=== PATIENT | male | born 1960 | race Two or more races ===

== ENCOUNTER 2022-06-07 11:20 | Inpatient (IN) | payer MEDICARE, MEDICAID ==
[~2022-06-07] VITALS: Ht 165.1 cm; Wt 78.1 kg
[~2022-06-07 11:20] MED LIST: OLAN7.5T22 PO
[2022-06-07] MEDS ORDERED: PALI234D IM (11:34)
[2022-06-07] MEDS ORDERED: OLAN2.5T29 PO (11:34)
[2022-06-07] MEDS ORDERED: BUSP15 PO (11:34)
[2022-06-07] MEDS ORDERED: ATOR40TA71 PO (11:34)
[2022-06-07] MEDS ORDERED: DIVA-85 PO (11:34)
[2022-06-07] MEDS ORDERED: DIVA-80 PO (11:34)
[2022-06-07] MEDS ORDERED: FERR325T27 PO (11:34)
[2022-06-07] MEDS ORDERED: OLAN10TA74 PO (11:34)
[2022-06-07] MEDS ORDERED: LOSA-382 PO (11:34)
[2022-06-07] MEDS ORDERED: LEVO100 PO (11:34)
[2022-06-07] MEDS ORDERED: ICOS1CAP PO (11:34)
[2022-06-07] MEDS ORDERED: QUET100T PO (11:37)
[2022-06-07] MEDS ORDERED: MELA5TAB21 PO (11:37)
[2022-06-07 12:26] LABS: BASOPHILS % (AUTO) 0.2 % (0.0-2.0); EOSINOPHILS % (AUTO) 0.6 % (1.0-6.0); HEMATOCRIT 38.6 % (41-53); HEMOGLOBIN 12.8 g/dL (13.5-17.5); LYMPHOCYTES # (AUTO) 1.2 K/uL (1.0-4.8); MEAN CORPUSCULAR HEMOGLOBIN 30.4 pg (26.0-34.0); MEAN CORPUSCULAR HGB CONC 33.3 G/dL (31.0-37.0); MEAN CORPUSCULAR VOLUME 91 fL (80-100); MONOCYTES # (AUTO) 0.3 K/uL (0.1-1.0); MONOCYTES % (AUTO) 9.7 % (2.0-9.0); NEUTROPHILS # (AUTO) 1.8 K/uL (1.8-7.7); NEUTROPHILS % (AUTO) 54.5 % (40.0-70.0); PLATELET COUNT (AUTO) 90 K/uL (150-450); RED BLOOD CELL COUNT(AUTO) 4.23 MIL/uL (4.50-5.90); RED CELL DISTRIBUTION WIDTH 13.8 % (11.5-14.5)
[2022-06-07 12:28] LABS: ANION GAP 8 mmol/L (8-16); CALCIUM, TOTAL 8.7 mg/dL (8.8-10.5); CARBON DIOXIDE 27 mmol/L (22-29); CHLORIDE 100 mmol/L (98-107); CREATININE 0.73 mg/dL (0.60-1.30); GLUCOSE,RANDOM 111 mg/dL (70-110); POTASSIUM 4.1 mmol/L (3.5-5.1); SODIUM SERUM 135 mmol/L (136-145); UREA NITROGEN, BLOOD 12 mg/dL (7-18)
[2022-06-07 12:31] LABS: GLOMERULAR FILTR. RATE CALC > 60 mL/min (>60)
[2022-06-07 12:34] LABS: ALANINE AMINOTRANSFERASE 12 U/L (12-78); ALBUMIN 3.3 g/dL (3.4-5.0); ALKALINE PHOSPHATASE 69 U/L (46-116); ASPARTATE AMINOTRANSFERASE 20 U/L (15-37); BILIRUBIN,TOTAL 0.5 mg/dL (0.1-1.0); TOTAL PROTEIN, SERUM 6.7 g/dL (6.4-8.2)
[2022-06-07] MEDS ORDERED: OLANZapine 5 MG RAPDIS TABLET PO PRN (13:15)
[2022-06-07] MEDS ORDERED: LORazepam 2 MG TABLET PO PRN (13:15)
[2022-06-07 13:20] LABS: COVID AG,FIA SOURCE NASAL SWAB
[2022-06-07 18:34] VITALS: BP 129/66
[2022-06-08] MEDS ORDERED: BENZOCAINE/MENTHOL LOZENGE PO PRN (07:15)
[2022-06-08] MEDS ORDERED: MAGNESIUM HYDROXIDE SUSPENSION 30 ML UDCUP PO PRN (07:15)
[2022-06-08] MEDS ORDERED: BACITRACIN 28 GM OINTMENT TP PRN (07:15)
[2022-06-08] MEDS ORDERED: OMEPRAZOLE 20 MG CAPSULE PO PRN (07:15)
[2022-06-08] MEDS ORDERED: CloNIDine HCL 0.1 MG TABLET PO PRN (07:15)
[2022-06-08] MEDS ORDERED: MAG HYDROX/AL HYDROX/SIMETH ES 30 ML SUSPENSION UDCUP PO PRN (07:15)
[2022-06-08] MEDS ORDERED: PETROLATUM,WHITE 28 GM JELLY TP PRN (07:15)
[2022-06-08] MEDS ORDERED: LOPERAMIDE HCL 2 MG CAPSULE PO PRN (07:15)
[2022-06-08] MEDS ORDERED: ALBUTEROL SULFATE HFA 90 MCG/PUFF 8 GM INHALER IH PRN (07:15)
[2022-06-08] MEDS ORDERED: ONDANSETRON HCL 4 MG TABLET PO PRN (07:15)
[2022-06-08] MEDS ORDERED: IBUPROFEN 600 MG TABLET PO PRN (07:15)
[2022-06-08] MEDS ORDERED: ACETAMINOPHEN 325 MG TABLET PO PRN (07:15)
[2022-06-08] MEDS: ATORVASTATIN CALCIUM 40 MG TABLET PO SCH (08:46)
[2022-06-08] MEDS: LOSARTAN POTASSIUM 50 MG TABLET PO SCH (08:47)
[2022-06-08] MEDS: LEVOTHYROXINE SODIUM 100 MCG TABLET PO SCH (08:47)
[2022-06-08 09:00] VITALS: BP 138/80
[2022-06-08 11:44] LABS: VALPROIC ACID 101 mcg/mL (50-100)
[2022-06-08] MEDS: OLANZapine 5 MG TABLET PO SCH (12:00)
[2022-06-08] MEDS: DIVALPROEX SODIUM 500 MG ER TABLET PO SCH ×2 (12:00→20:20)
[2022-06-08] MEDS: BusPIRone HCL 10 MG TABLET PO SCH ×2 (12:23→16:24)
[2022-06-08] MEDS: DOCUSATE SODIUM 100 MG CAPSULE PO PRN (13:45)
[2022-06-08 16:12] VITALS: BP 145/91
[2022-06-08] MEDS: ZOLPIDEM TARTRATE 10 MG TABLET PO PRN (20:20)
[2022-06-08] MEDS: OLANZapine 10 MG TABLET PO SCH (20:20)
[2022-06-09] MEDS: LEVOTHYROXINE SODIUM 100 MCG TABLET PO SCH (06:09)
[2022-06-09 07:29] LABS: AMPHET/METH SCREEN,URINE NEGATIVE (NEGATIVE); BARBITURATE SCREEN, URINE NEGATIVE (NEGATIVE); BENZODIAZEPINES SCREEN,URINE NEGATIVE (NEGATIVE); CANNABINOID SCREEN,URINE NEGATIVE (NEGATIVE); COCAINE SCREEN,URINE NEGATIVE (NEGATIVE); METHADONE SCREEN, URINE NEGATIVE (NEGATIVE); OPIATE SCREEN,URINE NEGATIVE (NEGATIVE)
[2022-06-09 07:31] LABS: APPEARANCE,URINE CLEAR (CLEAR); BILIRUBIN,URINE NEGATIVE (NEGATIVE); GLUCOSE, URINE (UA) NEGATIVE (NEGATIVE); KETONES,URINE NEGATIVE (NEGATIVE); LEUKOCYTE ESTERASE ,URINE NEGATIVE (NEGATIVE); NITRATE,URINE NEGATIVE (NEGATIVE); OCCULT BLOOD,URINE NEGATIVE (NEGATIVE); PH,URINE 6.5 (5.0-8.0); PROTEIN,URINE NEGATIVE (NEGATIVE); UROBILINOGEN,URINE <=1.0 mg/dL (<=1.0)
[2022-06-09 07:39] LABS: PHENCYCLIDINE SCREEN,URINE NEGATIVE (NEGATIVE)
[2022-06-09 09:03] VITALS: BP 132/74
[2022-06-09] MEDS: OLANZapine 5 MG TABLET PO SCH (10:37)
[2022-06-09] MEDS: DIVALPROEX SODIUM 500 MG ER TABLET PO SCH ×2 (10:37→20:23)
[2022-06-09] MEDS: LOSARTAN POTASSIUM 50 MG TABLET PO SCH (10:37)
[2022-06-09] MEDS: ATORVASTATIN CALCIUM 40 MG TABLET PO SCH (10:37)
[2022-06-09] MEDS: BusPIRone HCL 10 MG TABLET PO SCH ×3 (10:38→16:56)
[2022-06-09 16:00] VITALS: BP 137/89
[2022-06-09] MEDS ORDERED: DIVA-80 PO (16:16)
[2022-06-09] MEDS: OLANZapine 10 MG TABLET PO SCH (20:23)
[2022-06-10] MEDS: LEVOTHYROXINE SODIUM 100 MCG TABLET PO SCH (06:36)
[2022-06-10 10:05] VITALS: BP 145/86
[2022-06-10] MEDS: BusPIRone HCL 10 MG TABLET PO SCH ×3 (10:06→17:16)
[2022-06-10] MEDS: OLANZapine 5 MG TABLET PO SCH (10:06)
[2022-06-10] MEDS: LOSARTAN POTASSIUM 50 MG TABLET PO SCH (10:06)
[2022-06-10] MEDS: ATORVASTATIN CALCIUM 40 MG TABLET PO SCH (10:06)
[2022-06-10] MEDS: DIVALPROEX SODIUM 500 MG ER TABLET PO SCH ×2 (10:07→20:26)
[2022-06-10 16:12] VITALS: BP 129/86
[2022-06-10] MEDS: OLANZapine 10 MG TABLET PO SCH (20:26)
[2022-06-11] MEDS: LEVOTHYROXINE SODIUM 100 MCG TABLET PO SCH (06:06)
[2022-06-11 08:00] VITALS: BP 133/74
[2022-06-11] MEDS: BusPIRone HCL 10 MG TABLET PO SCH ×3 (08:46→16:13)
[2022-06-11] MEDS: DIVALPROEX SODIUM 500 MG ER TABLET PO SCH ×2 (08:46→20:39)
[2022-06-11] MEDS: ATORVASTATIN CALCIUM 40 MG TABLET PO SCH (08:46)
[2022-06-11] MEDS: LOSARTAN POTASSIUM 50 MG TABLET PO SCH (08:47)
[2022-06-11] MEDS: OLANZapine 5 MG TABLET PO SCH (08:47)
[2022-06-11] MEDS ORDERED: PALIPERIDONE PALMITATE 234 MG/1.5 ML SYRINGE IM SCH (09:00)
[2022-06-11 16:00] VITALS: BP 117/77
[2022-06-11 20:20] VITALS: BP 125/82
[2022-06-11] MEDS: OLANZapine 10 MG TABLET PO SCH (20:40)
[2022-06-12] MEDS: LEVOTHYROXINE SODIUM 100 MCG TABLET PO SCH (06:50)
[2022-06-12] MEDS: BusPIRone HCL 10 MG TABLET PO SCH ×3 (09:04→16:18)
[2022-06-12] MEDS: OLANZapine 5 MG TABLET PO SCH (09:04)
[2022-06-12] MEDS: LOSARTAN POTASSIUM 50 MG TABLET PO SCH (09:05)
[2022-06-12] MEDS: ATORVASTATIN CALCIUM 40 MG TABLET PO SCH (09:05)
[2022-06-12] MEDS: DIVALPROEX SODIUM 500 MG ER TABLET PO SCH ×2 (09:06→20:30)
[2022-06-12] MEDS ORDERED: PALIPERIDONE PALMITATE 234 MG/1.5 ML SYRINGE IM SCH (10:45)
[2022-06-12 16:16] VITALS: BP 105/66
[2022-06-12] MEDS: DOCUSATE SODIUM 100 MG CAPSULE PO PRN (18:19)
[2022-06-12] MEDS: ZOLPIDEM TARTRATE 10 MG TABLET PO PRN (20:31)
[2022-06-12] MEDS: OLANZapine 10 MG TABLET PO SCH (20:31)
[2022-06-13] MEDS: LEVOTHYROXINE SODIUM 100 MCG TABLET PO SCH (06:06)
[2022-06-13 07:39] LABS: COVID AG,FIA SOURCE NASAL SWAB
[2022-06-13] MEDS: BusPIRone HCL 10 MG TABLET PO SCH ×3 (08:33→16:18)
[2022-06-13] MEDS: ATORVASTATIN CALCIUM 40 MG TABLET PO SCH (08:33)
[2022-06-13] MEDS: LOSARTAN POTASSIUM 50 MG TABLET PO SCH (08:33)
[2022-06-13] MEDS: OLANZapine 5 MG TABLET PO SCH (08:33)
[2022-06-13] MEDS: DIVALPROEX SODIUM 500 MG ER TABLET PO SCH ×2 (08:34→20:23)
[2022-06-13 09:00] VITALS: BP 118/70
[2022-06-13 16:00] VITALS: BP 141/86
[2022-06-13] MEDS: OLANZapine 10 MG TABLET PO SCH (20:23)
[2022-06-14] MEDS: LEVOTHYROXINE SODIUM 100 MCG TABLET PO SCH (06:28)
[2022-06-14 08:48] VITALS: BP 163/85
[2022-06-14] MEDS: ATORVASTATIN CALCIUM 40 MG TABLET PO SCH (09:42)
[2022-06-14] MEDS: LOSARTAN POTASSIUM 50 MG TABLET PO SCH (09:42)
[2022-06-14] MEDS: BusPIRone HCL 10 MG TABLET PO SCH ×3 (09:42→16:08)
[2022-06-14] MEDS: OLANZapine 5 MG TABLET PO SCH (09:42)
[2022-06-14] MEDS: DIVALPROEX SODIUM 500 MG ER TABLET PO SCH ×2 (09:44→20:42)
[2022-06-14 16:01] VITALS: BP 134/72
[2022-06-14] MEDS: OLANZapine 10 MG TABLET PO SCH (20:42)
[2022-06-15] MEDS: LEVOTHYROXINE SODIUM 100 MCG TABLET PO SCH (06:56)
[2022-06-15 09:03] VITALS: BP 121/73
[2022-06-15] MEDS: ATORVASTATIN CALCIUM 40 MG TABLET PO SCH (10:16)
[2022-06-15] MEDS: BusPIRone HCL 10 MG TABLET PO SCH ×3 (10:16→17:28)
[2022-06-15] MEDS: DIVALPROEX SODIUM 500 MG ER TABLET PO SCH ×2 (10:16→20:55)
[2022-06-15] MEDS: LOSARTAN POTASSIUM 50 MG TABLET PO SCH (10:16)
[2022-06-15] MEDS: OLANZapine 5 MG TABLET PO SCH (10:16)
[2022-06-15 16:24] VITALS: BP 137/81
[2022-06-15] MEDS: OLANZapine 10 MG TABLET PO SCH (20:55)
[2022-06-16] MEDS: LEVOTHYROXINE SODIUM 100 MCG TABLET PO SCH (06:21)
[2022-06-16 08:00] VITALS: BP 134/83
[2022-06-16] MEDS: OLANZapine 5 MG TABLET PO SCH (08:18)
[2022-06-16] MEDS: LOSARTAN POTASSIUM 50 MG TABLET PO SCH (08:18)
[2022-06-16] MEDS: DIVALPROEX SODIUM 500 MG ER TABLET PO SCH ×2 (08:18→20:24)
[2022-06-16] MEDS: ATORVASTATIN CALCIUM 40 MG TABLET PO SCH (08:18)
[2022-06-16] MEDS: BusPIRone HCL 10 MG TABLET PO SCH ×3 (08:19→17:33)
[2022-06-16 11:13] LABS: BASOPHILS % (AUTO) 0.3 % (0.0-2.0); EOSINOPHILS % (AUTO) 0.5 % (1.0-6.0); HEMATOCRIT 36.9 % (41-53); HEMOGLOBIN 12.2 g/dL (13.5-17.5); LYMPHOCYTES # (AUTO) 1.1 K/uL (1.0-4.8); LYMPHOCYTES % (AUTO) 21.6 % (22.0-44.0); MEAN CORPUSCULAR HEMOGLOBIN 29.9 pg (26.0-34.0); MEAN CORPUSCULAR HGB CONC 33.1 G/dL (31.0-37.0); MEAN CORPUSCULAR VOLUME 90 fL (80-100); MONOCYTES # (AUTO) 0.7 K/uL (0.1-1.0); MONOCYTES % (AUTO) 13.1 % (2.0-9.0); NEUTROPHILS # (AUTO) 3.3 K/uL (1.8-7.7); NEUTROPHILS % (AUTO) 64.5 % (40.0-70.0); PLATELET COUNT (AUTO) 156 K/uL (150-450); RED BLOOD CELL COUNT(AUTO) 4.09 MIL/uL (4.50-5.90); RED CELL DISTRIBUTION WIDTH 13.9 % (11.5-14.5)
[2022-06-16 11:46] LABS: ANION GAP 6 mmol/L (8-16); CALCIUM, TOTAL 8.5 mg/dL (8.8-10.5); CARBON DIOXIDE 31 mmol/L (22-29); CHLORIDE 100 mmol/L (98-107); CREATININE 0.63 mg/dL (0.60-1.30); GLOMERULAR FILTR. RATE CALC > 60 mL/min (>60); GLUCOSE,RANDOM 160 mg/dL (70-110); POTASSIUM 3.9 mmol/L (3.5-5.1); SODIUM SERUM 137 mmol/L (136-145); UREA NITROGEN, BLOOD 14 mg/dL (7-18)
[2022-06-16 16:21] VITALS: BP 130/74
[2022-06-16] MEDS: OLANZapine 10 MG TABLET PO SCH (20:24)
[2022-06-17] MEDS: LEVOTHYROXINE SODIUM 100 MCG TABLET PO SCH (06:19)
[2022-06-17] MEDS: DIVALPROEX SODIUM 500 MG ER TABLET PO SCH ×2 (08:50→20:26)
[2022-06-17] MEDS: BusPIRone HCL 10 MG TABLET PO SCH ×3 (08:51→16:17)
[2022-06-17] MEDS: LOSARTAN POTASSIUM 50 MG TABLET PO SCH (08:51)
[2022-06-17] MEDS: ATORVASTATIN CALCIUM 40 MG TABLET PO SCH (08:51)
[2022-06-17] MEDS: OLANZapine 5 MG TABLET PO SCH (08:52)
[2022-06-17 09:05] VITALS: BP 159/92
[2022-06-17 16:05] VITALS: BP 132/99
[2022-06-17] MEDS: OLANZapine 10 MG TABLET PO SCH (20:25)
[2022-06-18] MEDS: LEVOTHYROXINE SODIUM 100 MCG TABLET PO SCH (06:44)
[2022-06-18] MEDS: DIVALPROEX SODIUM 500 MG ER TABLET PO SCH ×2 (08:59→20:29)
[2022-06-18] MEDS: OLANZapine 5 MG TABLET PO SCH (09:00)
[2022-06-18] MEDS: ATORVASTATIN CALCIUM 40 MG TABLET PO SCH (09:00)
[2022-06-18] MEDS: BusPIRone HCL 10 MG TABLET PO SCH ×3 (09:00→17:00)
[2022-06-18] MEDS: LOSARTAN POTASSIUM 50 MG TABLET PO SCH (09:00)
[2022-06-18 09:24] VITALS: BP 135/92
[2022-06-18 16:14] VITALS: BP 158/79
[2022-06-18] MEDS: OLANZapine 10 MG TABLET PO SCH (20:29)
[2022-06-19] MEDS: LEVOTHYROXINE SODIUM 100 MCG TABLET PO SCH (06:15)
[2022-06-19] MEDS: OLANZapine 5 MG TABLET PO SCH (08:34)
[2022-06-19] MEDS: ATORVASTATIN CALCIUM 40 MG TABLET PO SCH (08:34)
[2022-06-19] MEDS: DIVALPROEX SODIUM 500 MG ER TABLET PO SCH ×2 (08:34→21:13)
[2022-06-19] MEDS: LOSARTAN POTASSIUM 50 MG TABLET PO SCH (08:34)
[2022-06-19] MEDS: BusPIRone HCL 10 MG TABLET PO SCH ×3 (08:35→16:57)
[2022-06-19 09:08] VITALS: BP 141/80
[2022-06-19 16:36] VITALS: BP 154/97
[2022-06-19] MEDS: OLANZapine 10 MG TABLET PO SCH (21:13)
[2022-06-20] MEDS: LEVOTHYROXINE SODIUM 100 MCG TABLET PO SCH (06:54)
[2022-06-20 08:00] VITALS: BP 139/75
[2022-06-20] MEDS: DIVALPROEX SODIUM 500 MG ER TABLET PO SCH ×2 (08:19→20:54)
[2022-06-20] MEDS: ATORVASTATIN CALCIUM 40 MG TABLET PO SCH (08:19)
[2022-06-20] MEDS: BusPIRone HCL 10 MG TABLET PO SCH ×3 (08:20→17:12)
[2022-06-20] MEDS: OLANZapine 5 MG TABLET PO SCH (08:20)
[2022-06-20] MEDS: LOSARTAN POTASSIUM 50 MG TABLET PO SCH (08:20)
[2022-06-20 08:45] LABS: COVID AG,FIA SOURCE NASAL SWAB
[2022-06-20 16:16] VITALS: BP 160/94
[2022-06-20] MEDS: OLANZapine 10 MG TABLET PO SCH (20:54)
[2022-06-21] MEDS: LEVOTHYROXINE SODIUM 100 MCG TABLET PO SCH (06:46)
[2022-06-21] MEDS: ATORVASTATIN CALCIUM 40 MG TABLET PO SCH (08:22)
[2022-06-21] MEDS: LOSARTAN POTASSIUM 50 MG TABLET PO SCH (08:22)
[2022-06-21] MEDS: OLANZapine 5 MG TABLET PO SCH (08:22)
[2022-06-21] MEDS: DIVALPROEX SODIUM 500 MG ER TABLET PO SCH ×2 (08:23→20:24)
[2022-06-21] MEDS: BusPIRone HCL 10 MG TABLET PO SCH ×3 (08:23→16:26)
[2022-06-21 08:27] VITALS: BP 145/88
[2022-06-21 17:26] VITALS: BP 128/86
[2022-06-21] MEDS: OLANZapine 10 MG TABLET PO SCH (20:24)
[2022-06-22] MEDS: LEVOTHYROXINE SODIUM 100 MCG TABLET PO SCH (06:32)
[2022-06-22] MEDS: DIVALPROEX SODIUM 500 MG ER TABLET PO SCH ×2 (09:06→20:55)
[2022-06-22] MEDS: LOSARTAN POTASSIUM 50 MG TABLET PO SCH (09:07)
[2022-06-22] MEDS: BusPIRone HCL 10 MG TABLET PO SCH ×3 (09:07→17:21)
[2022-06-22] MEDS: OLANZapine 5 MG TABLET PO SCH (09:08)
[2022-06-22] MEDS: ATORVASTATIN CALCIUM 40 MG TABLET PO SCH (09:08)
[2022-06-22 09:24] VITALS: BP 149/81
[2022-06-22 16:19] VITALS: BP 124/84
[2022-06-22] MEDS: OLANZapine 10 MG TABLET PO SCH (20:56)
[2022-06-23] MEDS: LEVOTHYROXINE SODIUM 100 MCG TABLET PO SCH (06:40)
[2022-06-23] MEDS: BusPIRone HCL 10 MG TABLET PO SCH ×3 (09:07→16:35)
[2022-06-23] MEDS: DIVALPROEX SODIUM 500 MG ER TABLET PO SCH ×2 (09:07→20:27)
[2022-06-23] MEDS: ATORVASTATIN CALCIUM 40 MG TABLET PO SCH (09:08)
[2022-06-23] MEDS: LOSARTAN POTASSIUM 50 MG TABLET PO SCH (09:08)
[2022-06-23] MEDS: OLANZapine 5 MG TABLET PO SCH (09:08)
[2022-06-23 10:13] VITALS: BP 153/103
[2022-06-23 16:00] VITALS: BP 153/103
[2022-06-23] MEDS: OLANZapine 10 MG TABLET PO SCH (20:26)
[2022-06-24] MEDS: LEVOTHYROXINE SODIUM 100 MCG TABLET PO SCH (06:49)
[2022-06-24] MEDS: ATORVASTATIN CALCIUM 40 MG TABLET PO SCH (08:53)
[2022-06-24] MEDS: LOSARTAN POTASSIUM 50 MG TABLET PO SCH (08:53)
[2022-06-24] MEDS: BusPIRone HCL 10 MG TABLET PO SCH ×3 (08:53→16:53)
[2022-06-24] MEDS: OLANZapine 5 MG TABLET PO SCH (08:53)
[2022-06-24] MEDS: DIVALPROEX SODIUM 500 MG ER TABLET PO SCH ×2 (08:53→20:12)
[2022-06-24 09:58] VITALS: BP 144/91
[2022-06-24 17:14] VITALS: BP 154/87
[2022-06-24] MEDS: OLANZapine 10 MG TABLET PO SCH (20:12)
[2022-06-25] MEDS: LEVOTHYROXINE SODIUM 100 MCG TABLET PO SCH (06:22)
[2022-06-25 09:04] VITALS: BP 138/75
[2022-06-25] MEDS: DIVALPROEX SODIUM 500 MG ER TABLET PO SCH ×2 (09:27→20:26)
[2022-06-25] MEDS: BusPIRone HCL 10 MG TABLET PO SCH ×3 (09:27→16:58)
[2022-06-25] MEDS: OLANZapine 5 MG TABLET PO SCH (09:27)
[2022-06-25] MEDS: ATORVASTATIN CALCIUM 40 MG TABLET PO SCH (09:27)
[2022-06-25] MEDS: LOSARTAN POTASSIUM 50 MG TABLET PO SCH (09:27)
[2022-06-25 16:39] VITALS: BP 131/90
[2022-06-25] MEDS: OLANZapine 10 MG TABLET PO SCH (20:26)
[2022-06-26] MEDS: LEVOTHYROXINE SODIUM 100 MCG TABLET PO SCH (06:21)
[2022-06-26] MEDS: DIVALPROEX SODIUM 500 MG ER TABLET PO SCH ×2 (08:15→20:38)
[2022-06-26] MEDS: BusPIRone HCL 10 MG TABLET PO SCH ×3 (08:15→16:49)
[2022-06-26] MEDS: LOSARTAN POTASSIUM 50 MG TABLET PO SCH (08:15)
[2022-06-26] MEDS: OLANZapine 5 MG TABLET PO SCH (08:15)
[2022-06-26] MEDS: ATORVASTATIN CALCIUM 40 MG TABLET PO SCH (08:15)
[2022-06-26 08:30] VITALS: BP 146/96
[2022-06-26 16:25] VITALS: BP 128/75
[2022-06-26] MEDS ORDERED: ATOR40TA71 PO (17:39)
[2022-06-26] MEDS ORDERED: BUSP10TA23 PO (17:39)
[2022-06-26] MEDS ORDERED: PALI234D IM (17:39)
[2022-06-26] MEDS ORDERED: DIVA-80 PO ×2 (17:39)
[2022-06-26] MEDS ORDERED: OLAN10 PO (17:39)
[2022-06-26] MEDS ORDERED: LEVO100 PO (17:39)
[2022-06-26] MEDS ORDERED: LOSA-382 PO (17:39)
[2022-06-26] MEDS ORDERED: OLAN5TAB52 PO (17:39)
[2022-06-26] MEDS: OLANZapine 10 MG TABLET PO SCH (20:37)
[2022-06-27] MEDS: LEVOTHYROXINE SODIUM 100 MCG TABLET PO SCH (06:29)
[2022-06-27 07:44] LABS: COVID AG,FIA SOURCE NASAL SWAB
[2022-06-27] MEDS: LOSARTAN POTASSIUM 50 MG TABLET PO SCH (09:17)
[2022-06-27] MEDS: ATORVASTATIN CALCIUM 40 MG TABLET PO SCH (09:17)
[2022-06-27] MEDS: BusPIRone HCL 10 MG TABLET PO SCH ×2 (09:17→12:38)
[2022-06-27] MEDS: OLANZapine 5 MG TABLET PO SCH (09:17)
[2022-06-27] MEDS: DIVALPROEX SODIUM 500 MG ER TABLET PO SCH (09:18)
[2022-06-27 09:22] VITALS: BP 130/80
== END 2022-06-27 15:30 | disposition home or self-care (01) | DRG 885 ==
LOC: EMS 11:25 → B2X 14:14 → 3EX 14:14 → UNDOADMIN 14:14 → 3EX 06-15 21:57
PROVIDERS: ADMIT Psychiatry & Neurology Psychiatry; ATTEND Psychiatry & Neurology Psychiatry
DX: F25.1 Schizoaffective disorder, depressive type (principal); F79 Unspecified intellectual disabilities; R45.851 Suicidal ideations; Z20.822 Contact with and (suspected) exposure to COVID-19; D64.9 Anemia, unspecified; E03.9 Hypothyroidism, unspecified; E11.9 Type 2 diabetes mellitus without complications; E78.5 Hyperlipidemia, unspecified; F41.9 Anxiety disorder, unspecified; G47.00 Insomnia, unspecified; I10 Essential (primary) hypertension; K59.00 Constipation, unspecified; Z59.00 Homelessness unspecified; Z91.199 Patient's noncompliance with other medical treatment and regimen due to unspecified reason; Z79.899 Other long term (current) drug therapy
CPT/HCPCS: 80048; 80053; 80164; 80307; 81003; 85025; 99285; G0378; G0480

== ENCOUNTER 2022-11-12 16:13 | Emergency (ER) | payer MEDICARE, OTHER ==
[~2022-11-12] VITALS: Ht 177.8 cm; Wt 70.9 kg
[~2022-11-12 16:13] MED LIST changes: +ATOR40TA71 PO; +BUSP10TA23 PO; +DIVA500T53 PO; +LEVO100 PO; +LOSA-382 PO; +OLAN10 PO; +OLAN5TAB52 PO; -OLAN7.5T22 PO; +PALI234D IM
[2022-11-12] MEDS ORDERED: SODIUM CHLORIDE 0.9% 1,000 ML IV ONE (17:30)
[2022-11-12 17:36] LABS: BASOPHILS % (AUTO) 0.3 % (0.0-2.0); EOSINOPHILS % (AUTO) 0.6 % (1.0-6.0); HEMATOCRIT 37.7 % (41-53); HEMOGLOBIN 12.6 g/dL (13.5-17.5); LYMPHOCYTES # (AUTO) 1.3 K/uL (1.0-4.8); LYMPHOCYTES % (AUTO) 35.7 % (22.0-44.0); MEAN CORPUSCULAR HEMOGLOBIN 30.5 pg (26.0-34.0); MEAN CORPUSCULAR HGB CONC 33.3 G/dL (31.0-37.0); MEAN CORPUSCULAR VOLUME 91 fL (80-100); MONOCYTES # (AUTO) 0.4 K/uL (0.1-1.0); MONOCYTES % (AUTO) 10.1 % (2.0-9.0); NEUTROPHILS % (AUTO) 53.3 % (40.0-70.0); PLATELET COUNT (AUTO) 102 K/uL (150-450); RED BLOOD CELL COUNT(AUTO) 4.13 MIL/uL (4.50-5.90)
[2022-11-12 17:46] LABS: ANION GAP 8 mmol/L (8-16); CALCIUM, TOTAL 8.6 mg/dL (8.8-10.5); CARBON DIOXIDE 29 mmol/L (22-29); CHLORIDE 98 mmol/L (98-107); CREATININE 0.77 mg/dL (0.60-1.30); GLOMERULAR FILTR. RATE CALC > 60 mL/min (>60); GLUCOSE,RANDOM 151 mg/dL (70-110); POTASSIUM 4.3 mmol/L (3.5-5.1); SODIUM SERUM 135 mmol/L (136-145)
[2022-11-12 17:49] LABS: INR 1.2 (0.9-1.1); PROTHROMBIN TIME 12.3 SEC (9.4-11.6)
[2022-11-12 17:51] LABS: ALANINE AMINOTRANSFERASE 9 U/L (12-78); ALBUMIN 3.3 g/dL (3.4-5.0); ALKALINE PHOSPHATASE 85 U/L (46-116); ASPARTATE AMINOTRANSFERASE 17 U/L (15-37); BILIRUBIN,TOTAL 0.4 mg/dL (0.1-1.0); TOTAL PROTEIN, SERUM 7.1 g/dL (6.4-8.2)
[2022-11-12 17:59] LABS: APPEARANCE,URINE CLEAR (CLEAR); BILIRUBIN,URINE NEGATIVE (NEGATIVE); GLUCOSE, URINE (UA) 150-200 mg/dL (NEGATIVE); LEUKOCYTE ESTERASE ,URINE NEGATIVE (NEGATIVE); NITRATE,URINE NEGATIVE (NEGATIVE); OCCULT BLOOD,URINE NEGATIVE (NEGATIVE); PH,URINE 6.5 (5.0-8.0); PROTEIN,URINE NEGATIVE (NEGATIVE); SPECIFIC GRAVITIY, URINE 1.025 (1.003-1.030)
[2022-11-12 18:08] LABS: BACTERIA,URINE None Seen /HPF (None Seen); RBC,URINE 0-2 /HPF (0-2); SQUAMOUS EPITHELIAL CELL,UR Rare /LPF (None Seen); WBC,URINE 0-2 /HPF (0-5)
[2022-11-12 18:14] LABS: LACTIC ACID < 0.3 mmol/L (0.4-2.0)
[2022-11-12 18:19] LABS: AMPHET/METH SCREEN,URINE NEGATIVE (NEGATIVE); BARBITURATE SCREEN, URINE NEGATIVE (NEGATIVE); BENZODIAZEPINES SCREEN,URINE NEGATIVE (NEGATIVE); CANNABINOID SCREEN,URINE NEGATIVE (NEGATIVE); COCAINE SCREEN,URINE NEGATIVE (NEGATIVE); METHADONE SCREEN, URINE NEGATIVE (NEGATIVE); OPIATE SCREEN,URINE NEGATIVE (NEGATIVE); PHENCYCLIDINE SCREEN,URINE NEGATIVE (NEGATIVE)
[2022-11-12 20:31] VITALS: BP 154/96
== END 2022-11-12 20:57 | disposition home or self-care (01) ==
LOC: EMS 16:15
DX: F25.9 Schizoaffective disorder, unspecified (principal); E86.0 Dehydration; R51.9 Headache, unspecified; E78.00 Pure hypercholesterolemia, unspecified; Z79.899 Other long term (current) drug therapy
CPT/HCPCS: 99285; 70450; 71045; 80053; 81001; 83605; 84484; 85025; 85610; 85730; 87040; 36415; 93005; 80307; G0480; 51702

== ENCOUNTER 2023-08-25 08:43 | Emergency (ER) | payer MEDICARE, OTHER ==
[~2023-08-25] VITALS: Ht 162.6 cm; Wt 77.3 kg
[2023-08-25] MEDS ORDERED: POLY17PO11 PO (08:55)
[2023-08-25] MEDS ORDERED: FOLI0.4T6 PO (08:55)
[2023-08-25] MEDS ORDERED: BENZ1TAB84 PO (08:55)
[2023-08-25] MEDS ORDERED: DOCU-412 PO (08:55)
[2023-08-25] MEDS ORDERED: RIVA2.5T3 PO (08:55)
[2023-08-25] MEDS ORDERED: DIPH50CA35 PO (08:55)
[2023-08-25 09:11] VITALS: BP 121/65; PULSE 80; RESP 18; TEMP 98.3
== END 2023-08-25 12:17 | disposition home or self-care (01) ==
LOC: EMS 08:43
DX: F79 Unspecified intellectual disabilities (principal); E78.00 Pure hypercholesterolemia, unspecified; F20.9 Schizophrenia, unspecified
CPT/HCPCS: 99281; Z7502